=== PATIENT | female | born 1990 | race Caucasian/White ===

== ENCOUNTER 2016-08-24 16:04 | Inpatient (IN) | payer OTHER ==
[~2016-08-24] VITALS: Ht 162.6 cm; Wt 78.0 kg
[2016-08-24] MEDS ORDERED: Lactated Ringer's 1,000 ML IV PRN ×5 (16:12→19:15)
[2016-08-24] MEDS ORDERED: Oxytocin 10 Unit/mL Inj IM PRN ×5 (16:15→19:15)
[2016-08-24] MEDS ORDERED: fentaNYL-PF 50 mCg/mL 2 mL Inj IVPUSH PRN ×3 (16:15→16:30)
[2016-08-24] MEDS ORDERED: Oxytocin 30 Units/500 mL LR 30 UNITS in IV Premix 1 EACH IV PRN ×4 (16:15→19:15)
[2016-08-24] MEDS ORDERED: Carboprost 250 mCg/mL Inj IM PRN ×5 (16:15→19:15)
[2016-08-24] MEDS ORDERED: Methylergonovine 0.2 mg/mL Inj IM PRN ×5 (16:15→19:15)
[2016-08-24] MEDS ORDERED: Ondansetron 2 mg/mL 2 mL Inj IVPUSH PRN ×5 (16:15→19:15)
[2016-08-24] MEDS ORDERED: Sodium Chloride LOK Flush 10 mL Syringe IVFLUSH PRN ×5 (16:15→19:15)
[2016-08-24] MEDS ORDERED: Hemorrhage Kit, Post Partum XX ONE ×4 (16:15)
[2016-08-24 17:08] LABS: Mean Corpuscular Hemoglobin 28.8 pg (27.0-35.0); Mean Corpuscular Volume 85.8 fL (81-100)
[2016-08-24] MEDS ORDERED: Oxytocin 30 Units/500 mL LR Premix IV ONE (19:00)
[2016-08-24] MEDS: fentaNYL-PF 50 mCg/mL 2 mL Inj IVPUSH PRN ×2 (19:05→20:13)
--- NOTE | 2016-08-24 21:08 | PCM.HPOB ---
Subjective Date of Service: Aug 24, 2016 Referring Provider: Admitting Physician: Flaquito Lua DO Primary Care Physician: Flaquito Lua DO Attending Physician: Flaquito Lua DO Chief Complaint leaking fluids History of Present History of Present Illness 25 yo [id number] at 40w5d by 1st trimester US presents with leaking clear fluids since 1515 today. Contractions have become more frequent and more intense since that time. She denies headaches, vision changes, vaginal bleeding. has been uncomplicated. GBS Neg. She has had regular OB care since 12 weeks. Meds: PNV PMH: Neg OB history: 1st trimester SAB September 2015 PSH: Neg Social Hx: lives in [place] with her Mushtaq where they are very involved in their christian and community. She is the oldest of a large family and from [place] 10 point ROS conducted and neg unless otherwise mentioned above. Obstetrical Complications: None Past Medical History Hx Tobacco Use: No Smoking Status: Never Smoker Hx Alcohol Use: No Hx Substance Use: No Past Family History Living Arrangement: with Family Genetic Screening/Counseling Genetic Screening/Counseling: Negative Baby father-had child w defect: No Allergy Coded Allergies: No Known Allergies (Unverified , 08/24/16) Exam Vital Signs 36.9 52 116/58 18 Exam FHT baseline 135, mod BTBV, +accels, no decels, category 1 maternal ctx q2-3 min, strong Objective 2.5cm, 70%, -2, soft, posterior Constitutional: Well-developed, Well-nourished, Normal habitus HEENT: Atraumatic, PERRLA, EOMI, Scleral Anicteric Lungs: Clear to Auscultation, Clear to Percussion, Normal Air Movement Heart: Exam Unremarkable, Regular Rate/Rhythm, Normal S1, Normal S2, No Murmurs /Rubs/Gallops Fundus 40cm Abdomen: Gravid, Normal bowel sounds, Soft, No tenderness, No hepatosplenomegaly, No masses Extremities: Pulses Palpable x4, Warm, No Edema Neurological/Psychiatric: Alert, Oriented X3, Cooperative, Moderate Distress Neuro: Grossly Neurologically Intact, Reflexes 2+, Normal DTRs Gynecologic: Normal: Adnexa/Parametria, Anus/Perineum, Bladder, Breasts, Cervix , External Genitalia, Rectal, Urethral Meatus, Uterus, Vagina/Pelvic Support Labs/Diagnostics Labs Laboratory Tests 72 Hours Test 08/24/16 16:48 White Blood Count 13.3th/mm3 (3.8-10.1) Red Blood Count 4.59mil/mm3 (3.90-5.20) Hemoglobin 13.2g/dL (12.0-15.6) Hematocrit 39.4% (35.0-46.0) Mean Corpuscular Volume 85.8fL (81-100) Mean Corpuscular Hemoglobin 28.8pg (27.0-35.0) Mean Corpuscular Hemoglobin Concent 33.5% (32.0-37.0) Red Cell Distribution Width 13.7% (12.3-15.4) Platelet Count 215bil/L (150-400) Maternal Blood Type: A (pos) Hx Rho(D) Immune Globulin: No Antibody Screen: Neg Group B Strep Results: Negative Previous Infant with GBS: Yes Rubella: Immune Lab History: Negative for: Hx Chicken Pox, Hx Gonorrhea, Hx Herpes, Hx Syphilis OB Intrapartum Assessment/Plan Assessment Impression: 1. 25 yo at 40w5d presenting in active labor 2. SROM at 1515, clear fluids 3. Reassuring FHTs 4. Pt does not desire epidural, okay to use fetanyl prn 5. GBS neg Plan: 1. Expectant management 2. Fentanyl for pain control, epidural if desired Problems: (1) Qualifiers: Weeks of gestation: 40 weeks Qualified Code: Z3A.40 - 40 weeks gestation of Status: Acute ICD Code: Z33.1 cc: Flaquito Lua Gary R DO Aug 24, 2016 21:08
[2016-08-24] MEDS ORDERED: Lactated Ringer's 1,000 ML IV SCH (23:50)
[2016-08-24] MEDS ORDERED: LANOlin HPA 7 Gm Ointment TOPICAL PRN (23:50)
--- NOTE | 2016-08-25 00:35 | PCM.OBVAG ---
Vaginal Delivery Date of Service Aug 24, 2016 Pre Operative Diagnosis Pre Operative Diagnosis Normal Post Operative Diagnosis Post Operative Diagnosis Same Procedure Obstetical Procedure: Normal Spontaneous Vaginal Delivery, Episiotomy, Repair of Perineal Tear (2nd degree) Schedule Manager/Mortician Supplies Sales Representative Provider and Mortician Supplies Sales Representative: Yannick Lua Indication for Procedure Indication for Procedure Category 1 tracing throughout labor with baseline of 130, last 10-15 minutes of pushing baby's pulse was around 100 between contractions there was a tight band of tissue posterior of the perineum delaying baby's expulsion. After consultation with credit verification clerk and charge nurse in room, I elected to perform an episiotomy given that FHTs had not returned to baseline, after risks and benefits were quickly explained to Cornelio. Verbal consent was obtained for procedure and small midline perineal episiotomy was performed without anesthesia during a contraction while pt was pushing. This did not appear to be sufficient and epinephine was injected between contractions and then further extension of the episiotomy was performed to extend midway between vagina and anus, and baby delivered seconds later. Episiotomy incision did not tear/extend further during expulsion. There was no shoulder dystocia. Dr. Rubio was present at delivery and helped to examine and evaluate baby whose apgars were 8 and 9. Induction: Active labor, SROM, Progressed normally through labor Findings Obstetrical Findings: (Female), Cord (3 Vessel), Weight ( 3953 grams), Weight (8 lbs 11 oz), Presentation (BERNIE), 1 minute (8), 5 minutes (9), Placenta (Intact/Normal), Perineal Laceration (2nd degree) Analgesia/Medications Obstetrical Anesthesia: IV pain medication, Local Procedure Details Procedure Details Episiotomy was repaired after epinephrine injected for anesthesia. 3.0 Vicryl was used to approximate the wound edges, which were brought together in a running stitch in the vagina and then converted to running subcutaneous externally. Small R sided periurethral tear was not bleeding and did not require repair. Wound edges were well approximated when legs together Uberous was firm and bleeding minimal Specimen none IV Intake/Output Catheters: Straight (one time after pushing for 1 hr, 100cc drained) Blood Loss & Administration Estimated Blood Loss: 200 Blood Admin during procedure: No Post Procedure Plan Post delivery Condition: Mom stable, Baby stable to nursery copies to: Flaquito Lua Gary R DO Aug 24, 2016 23:54
[2016-08-25] MEDS: Benzocaine (Dermoplast) 20% 60 Gm Spray TOPICAL PRN (00:53)
[2016-08-25] MEDS: Witch Hazel-Glycerin Pads TOPICAL PRN (00:53)
[2016-08-25] MEDS: Codeine-APAP 30-300 mg Tablet PO PRN ×5 (00:54→21:43)
[2016-08-25 06:33] LABS: Mean Corpuscular Hemoglobin 29.1 pg (27.0-35.0); Mean Corpuscular Volume 86.1 fL (81-100)
[2016-08-26] MEDS: Codeine-APAP 30-300 mg Tablet PO PRN ×2 (01:57→06:13)
[2016-08-26] MEDS: Witch Hazel-Glycerin Pads TOPICAL PRN (06:20)
[2016-08-26] MEDS: Benzocaine (Dermoplast) 20% 60 Gm Spray TOPICAL PRN (06:21)
--- NOTE | 2016-08-26 07:16 | PCM.DIOB ---
Obstetrical Disch Instruction Date of Service: Aug 26, 2016 Dates of Hospitalization Date of Hospital Admission Aug 24, 2016 at 16:29 Providers Admitting Physician: Flaquito Lua DO Primary Care Physician: Flaquito Lua DO Attending Physician: Flaquito Lua DO Discharge Diagnosis Problems: (1) Qualifiers: Weeks of gestation: 40 weeks Qualified Code: Z3A.40 - 40 weeks gestation of Status: Acute ICD Code: Z33.1 Diet Discharge Diet: No restrictions Activity Discharge Activity-General: No restrictions, Try not to overdue, Be up and about, Balance rest and activity, Activity as pain allows, Activity as energy allows Dressing and Incisional Care Hygiene: May shower, Perineal care, Sitz bath, Dermoplast spray, Witch Kim pads, Ice Follow Up Plan Follow Up Plan Dr. Lua in 6 weeks Call your provider for: Fever or Chills, Shortness of breath, Heavy vaginal bleeding, Heavy bleeding, Epigastric pain, Excessive constipation, Vaginal discomfort, Red painful breasts Flaquito Lua DO Aug 26, 2016 07:16
[2016-08-26] MEDS ORDERED: IBUP-1827 PO (07:17)
[2016-08-26] MEDS ORDERED: ACET1TAB42 PO (07:17)
[2016-08-26] MEDS ORDERED: DOCU-41 PO (07:17)
[2016-08-26 10:43] VITALS: BP 98/63; PULSE 77; RESP 12
--- NOTE | 2016-08-30 07:37 | PCM.DC.OB ---
Obstetrical Discharge Summary Date of Service Aug 30, 2016 Date of hospital admission Aug 24, 2016 at 16:29 Date of Discharge: Aug 26, 2016 Providers Admitting Physician: Milvia Saravia DO Primary Care Physician: Milvia Saravia DO Attending Physician: Milvia Saravia DO Problems: (1) Qualifiers: Weeks of gestation: 40 weeks Qualified Code: Z3A.40 - 40 weeks gestation of Status: Acute ICD Code: Z33.1 Consultations none Invasive procedures Episiotomy Date of Procedure: Aug 24, 2016 Brief History and Physical: 25 yo [id number] at 40w5d by 1st trimester US presents with leaking clear fluids since 1515 today. Contractions have become more frequent and more intense since that time. She denies headaches, vision changes, vaginal bleeding. has been uncomplicated. GBS Neg. She has had regular OB care since 12 weeks. Meds: PNV PMH: Neg OB history: 1st trimester SAB September 2015 PSH: Neg Social Hx: lives in [place] with her Mushtaq where they are very involved in their oriental orthodox and community. She is the oldest of a large family and from [place] [id number] point ROS conducted and neg unless otherwise mentioned above. Hospital Course: Patient delivered an 8 lbs. 11 oz. healthy baby girl at 2312 via . heart rate baseline was approximately 130 throughout her labor and during the last 15 minutes or so dipped to around 100 despite oxygen, fluids, and repositioning. She did not have any deep decels but heart tones did not return to baseline and since baby was at the perineum and a tight perineum was the only thing impeding , after encouragement from cloth carrier and charge nurse, midline perineal episiotomy performed. The tear did not extend beyond the incision with expulsion of baby. She pushed for approximately 1 hour and 50 minutes. Hospitalist Program Director was present for delivery. Wesley Apgars were 8 and 9. She did not receive an epidural but received 2 doses of IV fentanyl during stage I of labor. She had a small right periurethral laceration that did not require sutures. Her episiotomy was the equivalent of a second-degree perineal laceration and was repaired with 3. 0 Vicryl without complication after lidocaine 1% without epinephrine was used for local anesthesia. Since giving she has been ambulating. Her pain is well-controlled with ibuprofen and Tylenol 3. She has no difficulty urinating although she notes some stinging. She has not had a bowel movement but has been passing gas. hemoglobin was 11.1. She is still considering control options. Breast- feeding is going well. She plans to follow up with me in 6 weeks. Gen. appearance: No acute distress. Alert and oriented. Well-nourished well- developed. HEENT: Pupils equally round and reactive to light. Mucous membranes moist. Neck: Supple without lymphadenopathy no thyromegaly or nodules appreciated. Heart: regular rate and rhythm without murmur rub or gallop Lungs: Clear to auscultation bilaterally. Abdomen: Uterine fundus is firm, midline, and 2 fingerbreadths below the umbilicus, abdomen otherwise soft, nontender, nondistended, positive bowel sounds, no hepatosplenomegaly appreciated, no masses Extremities: Without edema, 2 out of 4 distal pulses. Skin: without rash Neuro: No gross deficits of cranial nerves or bilateral upper/lower extremities appreciated. Acetaminophen/Codeine 300-30mg (Acetaminophen/Codeine 300-30mg) 1 Each Tablet 1- 2 TABLET PO Q4H PRN PRN For Pain Prescribed by: MILVIA SARAVIA DO Docusate Sodium (Colace) 100 Mg Capsule 100 MG PO BID Prescribed by: MILVIA SARAVIA DO Ibuprofen (Ibuprofen) 600 Mg Tablet 600 MG PO Q6H PRN PRN For Mild Pain Prescribed by: MILVIA SARAVIA DO Disposition Home Discharge Diet: No restrictions Discharge Activity-General: Pelvic Rest, Try not to overdue, Be up and about, Balance rest and activity, Activity as pain allows, Activity as energy allows Time spent 30 minutes copies to: Milvia Saravia Gary R DO Aug 30, 2016 07:08
--- NOTE | 2016-08-30 07:42 | PCM.PNOBPP ---
Subjective Date of Service Aug 30, 2016 Post : Spontaneous Vaginal Delivery Subjective Pain is well controlled with Tylenol 3 and ibuprofen. Breast-feeding is going well. Bleeding is heavier than a period. Patient has been unable to get rest due to multiple visitors. Lochia: Normal Pain Management: PO pain meds Gastrointestinal: Good Appetite, No N/V, Passing Flatus Postop Activity: Ambulating Independently, Ambulating in Room Only Group B Strep Results: Negative Rubella: Immune Blood Type: A (pos) RH Type: Positive Labs Laboratory Tests 08/25/16 06:15: White Blood Count 21.1, Red Blood Count 3.82, Hemoglobin 11.1, Hematocrit 32.9, Mean Corpuscular Volume 86.1, Mean Corpuscular Hemoglobin 29.1, Mean Corpuscular Hemoglobin Concent 33.7, Red Cell Distribution Width 13.4, Platelet Count 222 Exam Vital Signs Vital Signs: VS reviewed, stable Exam Abdomen: Uterus is (at UMB), Fundus firm, Abdomen soft, Abdomen non-tender Perineum: Laceration : Voiding without difficulty Extremities: No cords, Normal pulses, No tenderness/swelling, No edema Lungs: Clear to Auscultation, Clear to Percussion, Normal Air Movement Heart: Exam Unremarkable, Regular Rate/Rhythm, Normal S1, Normal S2, No Murmurs /Rubs/Gallops General: Alert, Oriented X3, Cooperative, No Acute Distress OB Post Assessment/Plan Assessment 25-year-old primigravida now day one doing well after delivery at 40 weeks 5 days of a healthy 8 lbs. 11 oz. female which did require an episiotomy Problems: (1) Qualifiers: Weeks of gestation: 40 weeks Qualified Code: Z3A.40 - 40 weeks gestation of Plan: Routine cares Status: Acute ICD Code: Z33.1 Pain Evaluation: Adequate Pain Control Post plan: Discharge home tomorrow Time Spent: 30 minutes Flaquito Lua DO Aug 30, 2016 07:42
== END 2016-08-26 11:32 | disposition home or self-care (01) | DRG 775 ==
LOC: UNDOADMIN 16:04 → FBC 16:04 → UNDODISIN 19:10
PROVIDERS: ADMIT Emergency Medicine; ATTEND Emergency Medicine
PROC: 10E0XZZ Delivery of Products of Conception, External Approach (ICD-10-PCS; principal; 2016-08-24)
PROC: 0W8NXZZ Division of Female Perineum, External Approach (ICD-10-PCS; 2016-08-24)
DX: O76 Abnormality in fetal heart rate and rhythm complicating labor and delivery (principal); Z3A.40 40 weeks gestation of pregnancy; Z37.0 Single live birth